=== PATIENT | male | born 2000 | race Caucasian/White ===

== ENCOUNTER 2022-11-12 11:24 | Emergency (ER) | payer OTHER, BC, SELFPAY ==
[2022-11-12 11:25] VITALS: BP 137/71; PULSE 56; RESP 17; TEMP 36.6; O2SAT 100
[2022-11-12] MEDS: LIDOCAINE HCL 2% JELLY 5 ML TUBE 1 APPLIC MUCOUS MEM (12:35)
--- NOTE | 2022-11-12 13:18 | ED.GENADULT ---
HPI - General Adult General Chief complaint: Unspecified Stated complaint: hemorrhoid Time Seen by Provider: 11/12/22 11:47 History of Present Illness HPI narrative: This is a 22M who presents to the emergency department with a painful hemorrhoid. The patient states he was seen by his primary care doctor several days ago for a hemorrhoid. He was prescribed steroids and has been using sitz baths. Overnight and today however, the hemorrhoid became more painful, rated 6-7/10, sharp and not radiating. He complains of some bright red blood with wiping but denies other bleeding. He denies fevers or chills. Related Data Allergies Allergy/AdvReac Type Severity Reaction Status Date / Time No Known Allergies Allergy Unknown Unverified 11/09/22 13:35 Review of Systems Review of Systems: CONSTITUTIONAL: Denies fever, chills, or sweats. RESPIRATORY: Denies cough or dyspnea. GASTROINTESTINAL: Rectal pain, hemorrhoid, intermittent bright red blood in stool, Denies abdominal pain, nausea, vomiting, or diarrhea. GENITOURINARY: Denies dysuria or hematuria. SKIN: Denies rash or itching. NEUROLOGIC: Denies headache, numbness, dizziness, or weakness. 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 HEAD: Normocephalic, atraumatic. CHEST: Clear to auscultation. No respiratory distress. No wheezes rales or rhonchi HEART: Regular rate and rhythm. No murmur heard. Normal peripheral pulses. ABDOMEN: Soft, nontender, nondistended, normal active bowel sounds. RECTAL: An external hemorrhoid is noted at the 5 o'clock position. It is soft though tender to palpation without erythema, induration, ecchymosis or palpable mass. There are no noted rectal masses or bleeding on digital rectal exam NEURO: Alert and oriented x3. Moving all 4 limbs purposefully. PSYCH: Normal mood and affect. Course Course Emergency Course: 13:15 - On reevaluation after application of topical lidocaine, the patient has improvement of his pain. Exam is not concerning for thrombosed external hemorrhoid. Will discharge with topical lidocaine, recommendation to continue hydrocortisone as well as use of sitz bath's. Discussed return and emergency precautions including signs/symptoms of thrombosed hemorrhoid and infection. The patient voiced understanding and is comfortable with the plan. All questions answered to his satisfaction. Vital Signs Vital signs: Vital Signs Temperature 97.8 F 11/12/22 11:25 Pulse Rate 56 L 11/12/22 11:25 Respiratory Rate 17 11/12/22 11:25 Blood Pressure 137/71 11/12/22 11:25 Pulse Oximetry 100 11/12/22 11:25 Oxygen Delivery Room Air 11/12/22 11:25 Temperature 97.8 F 11/12/22 11:25 Pulse Rate 56 L 11/12/22 11:25 Respiratory Rate 17 11/12/22 11:25 Blood Pressure 137/71 11/12/22 11:25 Pulse Oximetry 100 11/12/22 11:25 Oxygen Delivery Room Air 11/12/22 11:25 Medical Decision Making MDM Narrative Medical decision making narrative: Plan: Exam, pain control, reassess Differential Diagnosis Differential Diagnosis: External hemorrhoid, internal hemorrhoid, other Vital Signs Vital Signs: Vital Signs Temperature 97.8 F 11/12/22 11:25 Pulse Rate 56 L 11/12/22 11:25 Respiratory Rate 17 11/12/22 11:25 Blood Pressure 137/71 11/12/22 11:25 Pulse O
== END 2022-11-12 13:35 | disposition home or self-care (01) ==
PROVIDERS: Emergency Provider Preventive Medicine Aerospace Medicine
DX: K64.4 Residual hemorrhoidal skin tags (principal)
CPT/HCPCS: 46083; 99283